=== PATIENT | male | born 1995 | race American Indian/Alaskan Native ===

== ENCOUNTER 2017-05-31 09:32 | Emergency (ER) | payer SELFPAY ==
[2017-05-31 10:09] LABS: Basophils % (Auto) 0.3 % (0.0-1.8); Eosinophils % (Auto) 0.7 % (0.0-4.3); Hematocrit 44.3 % (35.5-45.6); Hemoglobin 14.7 gm/dl (11.8-15.2); Mean Corpuscular HGB Conc 33 % (32-34); Mean Corpuscular Hemoglobin 28 pg (28-32); Mean Corpuscular Volume 85 fl (84-94); Platelet Count 358 K/mm3 (140-440); Red Blood Count 5.19 M/mm3 (3.65-5.03); Red Cell Distribution Width 12.9 % (13.2-15.2); White Blood Count 10.1 K/mm3 (4.5-11.0)
[2017-05-31 10:14] LABS: Anion Gap 17 mmol/L; BUN/Creatinine Ratio 8.88; Blood Urea Nitrogen 8 mg/dL (9-20); Calcium 9.2 mg/dL (8.4-10.2); Carbon Dioxide 28 mmol/L (22-30); Chloride 100.8 mmol/L (98-107); Glucose 88 mg/dL (75-100); Potassium 3.8 mmol/L (3.6-5.0); Sodium 142 mmol/L (137-145)
[2017-05-31 10:37] LABS: Bacteria,Urine 1+ /HPF (Negative); Bilirubin,Urine NEG (Negative); Blood,Urine NEG (Negative); Ketones,Urine NEG (Negative); Leukocyte Esterase,Urine NEG (Negative); Mucus,Urine FEW /HPF; Nitrite,Urine NEG (Negative); Protein,Urine <15 mg/dL mg/dL (Negative); Urobilinogen,Urine < 2.0 mg/dL (<2.0)
--- NOTE | 2017-05-31 13:05 | Emergency Department Report ---
ED Abdominal Pain HPI - General Chief Complaint: Abdominal Pain Stated Complaint: ABD PAIN / CHEST PAIN Time Seen by Provider: 05/31/17 12:55 Source: patient Mode of arrival: Ambulatory Limitations: No Limitations - History of Present Illness Initial Comments: Patient describes lower abdominal crampy pain for 3-4 weeks. He states that he' s had diarrhea for 2 weeks approximately 4-5 times a day. He denies fever or chills. He states his last HIV test was 05/27/2017. He states that he has gotten back negative results already. He is not complaining of abdominal pain at this time. He denies taking any regular medicines. He states that he has not lost weight. He does not have a primary care physician. MD Complaint: abdominal pain -: Gradual Location: LLQ, RLQ Radiation: none Migration to: no migration Severity: mild Quality: other ("gurgling") Consistency: intermittent, now resolved Improves With: nothing Worsens With: nothing Context: other (denies any recent travel) Associated Symptoms: denies other symptoms, diarrhea. denies: nausea, vomiting , fever, chills, hematemesis, hematochezia, melena, hematuria, anorexia, syncope - Related Data Home Medications Medication Instructions Recorded Confirmed Last Taken No Known Home Medications [No 05/31/17 05/31/17 Unknown Reported Home Medications] Allergies Allergy/AdvReac Type Severity Reaction Status Date / Time No Known Allergies Allergy Unverified 05/31/17 09:43 ED Review of Systems ROS: Stated complaint: ABD PAIN / CHEST PAIN Other details as noted in HPI Constitutional: denies: chills, fever Eyes: denies: eye pain, eye discharge, vision change ENT: denies: ear pain, throat pain Respiratory: denies: cough, shortness of breath, wheezing Cardiovascular: denies: chest pain, palpitations Endocrine: no symptoms reported Gastrointestinal: as per HPI, diarrhea. denies: abdominal pain, nausea Genitourinary: denies: urgency, dysuria Musculoskeletal: denies: back pain, joint swelling, arthralgia Skin: denies: rash, lesions Neurological: denies: headache, weakness, paresthesias Psychiatric: denies: anxiety, depression Hematological/Lymphatic: denies: easy bleeding, easy bruising ED Past Medical Hx - Past Medical History Previous Medical History?: No - Surgical History Past Surgical History?: No - Social History Smoking Status: Never Smoker Substance Use Type: Alcohol - Medications Home Medications: Home Medications Medication Instructions Recorded Confirmed Last Taken Type No Known Home Medications [No 05/31/17 05/31/17 Unknown History Reported Home Medications] ED Physical Exam - General Limitations: No Limitations General appearance: alert, in no apparent distress - Head Head exam: Present: atraumatic, normocephalic - Eye Eye exam: Present: normal appearance, PERRL, EOMI. Absent: scleral icterus - ENT ENT exam: Present: normal exam, mucous membranes moist - Neck Neck exam: Present: normal inspection - Respiratory Respiratory exam: Present: normal lung sounds bilaterally. Absent: respiratory distress - Cardiovascular Cardiovascular Exam: Present: regular rate, normal rhythm. Absent: systolic murmur, diastolic murmur, rubs, gallop - GI/Abdominal GI/Abdominal exam: Present: soft, normal bowel sounds. Absent: distended, tenderness, guarding, rebound, rigid - Rectal Rectal exam: Present: deferred - Extremities Exam Extremities exam: Present: normal inspection - Back Exam Back exam: Present: normal inspection - Neurological Exam Neurological exam: Present: alert, oriented X3, CN II-XII intact. Absent: motor sensory deficit - Psychiatric Psychiatric exam: Present: normal affect, normal mood - Skin Skin exam: Present: warm, dry, intact, normal color. Absent: rash ED Course Vital Signs 05/31/17 09:38 Temperature 98.3 F Pulse Rate 100 H Respiratory 17 Rate Blood Pressure 121/73 O2 Sat by Pulse 100 Oximetry - Reevaluation(s) Reevaluation #1: Will send stool studies and referral. No specific treatment is indicated at this time. I will give the patient a few Lomatil for his diarrhea. 05/31/17 13:11 ED Medical Decision Making - Lab Data Result diagrams: 05/31/17 09:45 05/31/17 09:45 Laboratory Results - last 24 hr 05/31/17 05/31/17 05/31/17 09:45 09:45 10:20 WBC 10.1 RBC 5.19 H Hgb 14.7 Hct 44.3 MCV 85 MCH 28 MCHC 33 RDW 12.9 L Plt Count 358 Lymph % (Auto) 21.6 [place] % (Auto) 6.3 Eos % (Auto) 0.7 Baso % (Auto) 0.3 Lymph # 2.2 [place] # 0.6 Eos # 0.1 Baso # 0.0 Seg Neutrophils % 71.1 H Seg Neutrophils # 7.2 Sodium 142 Potassium 3.8 Chloride 100.8 Carbon Dioxide 28 Anion Gap 17 BUN 8 L Creatinine 0.9 Estimated GFR > 60 BUN/Creatinine Ratio 8.88 Glucose 88 Calcium 9.2 Urine Color Yellow Urine Turbidity Clear Urine pH 5.0 Ur Specific Raymond 1.024 Urine Protein <15 mg/dl Urine Glucose (UA) Neg Urine Ketones Neg Urine Blood Neg Urine Nitrite Neg Urine Bilirubin Neg Urine Urobilinogen < 2.0 Ur Leukocyte Esterase Neg Urine WBC (Auto) 1.0 Urine RBC (Auto) 1.0 U Epithel Cells (Auto) 1.0 Urine Bacteria (Auto) 1+ Urine Mucus Few Critical care attestation.: If time is entered above; I have spent that time in minutes in the direct care of this critically ill patient, excluding procedure time. ED Disposition Clinical Impression: Diarrhea Qualifiers: Diarrhea type: unspecified type Qualified Code(s): R19.7 - Diarrhea, unspecified Disposition: DC- TO HOME OR SELFCARE Is pt being admited?: No Does the pt Need Aspirin: No Condition: Stable Instructions: Acute Diarrhea (ED) Additional Instructions: Further evaluation and treatment based on your stool studies is indicated. Follow-up with primary care GI or local clinic. See referrals. Return any acute change or problem. [employer] over the counter. Referrals: RAH VILLAR MD [Staff Physician] - 3-5 Days [facility] [Provider Group] - 3-5 Days [facility] [Provider Group] - 3-5 Days PRIMARY MD UYEN [Primary Care Provider] - 2-3 Days Time of Disposition: 13:19
[2017-05-31 13:39] VITALS: BP 123/77
== END 2017-05-31 13:51 | disposition home or self-care (01) ==
LOC: ED 09:32
DX: R19.7 Diarrhea, unspecified (principal)
CPT/HCPCS: 36415; 80048; 81001; 85007; 85025; 87045; 87177; 87493; 99283